=== PATIENT | male | born 1990 | race Caucasian/White ===

== ENCOUNTER 2020-10-14 19:28 | Emergency (ER) | payer SELFPAY ==
[~2020-10-14] VITALS: Ht 167.6 cm; Wt 63.5 kg
[2020-10-14 19:29] VITALS: BP_SYST 136
--- NOTE | 2020-10-14 19:45 | NUR ---
Patient to ER bed Tent 1 to gown for evaluation. Side rails up.
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
--- NOTE | 2020-10-14 20:30 | NUR ---
Dr Nunez evaluating patient at bedside
--- NOTE | 2020-10-14 21:00 | NUR ---
Assumed care of patient at change of shift. Introduced self to patient, positioned for comfort and safety w/ bed to low position sr up, continue to monitor. Patient resting quietly. No acute distress noted. Vital signs within normal range.
[2020-10-14] MEDS ORDERED: BACITRACIN 1 GM OINT TP ONE (21:30)
[2020-10-14 21:40] VITALS: BP_SYST 132
--- NOTE | 2020-10-14 21:40 | NUR ---
Patient noted to have existing wounds upon arrival to ER. description of wound and placed in chart. Wound covered with dressing. Physician notified of wound presence. Patient given written and verbal discharge instructions and verbalizes understanding. ER MD discussed with patient the results and treatment provided. Patient in stable condition. ID arm band removed. Patient educated on pain management and to follow up with PMD. Pain Scale 0. Opportunity for questions provided and answered. Medication side effect fact sheet provided. Patient in custody w/ CAROLA Moreira
== END 2020-10-14 21:40 ==
LOC: SED 19:28
DX: S50.311A Abrasion of right elbow, initial encounter (principal); Y04.0XXA Assault by unarmed brawl or fight, initial encounter; Y93.89 Activity, other specified; Y92.89 Other specified places as the place of occurrence of the external cause; Y99.8 Other external cause status
CPT/HCPCS: 99283

== ENCOUNTER 2022-05-20 01:28 | Emergency (ER) | payer SELFPAY ==
[~2022-05-20] VITALS: Ht 167.6 cm; Wt 65.8 kg
--- NOTE | 2022-05-20 01:41 | NUR ---
Patient to ER bed 04 to gown for evaluation.
[2022-05-20 01:46] VITALS: BP_SYST 131
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
--- NOTE | 2022-05-20 02:13 | NUR ---
ER Dr. BERMUDEZ at bedside examining patient.
[2022-05-20] MEDS ORDERED: HYDROcodone/ACETAMIN 5-325 MG TAB (NORCO/ VICODIN) PO ONE (02:15)
--- NOTE | 2022-05-20 02:15 | NUR ---
PATIENT OFF UNIT TO CT SCAN
--- NOTE | 2022-05-20 02:42 | NUR ---
PATIENT RETURNED FROM CT SCAN
--- NOTE | 2022-05-20 02:46 | NUR ---
MEDICATED PER MD ORDERS
[2022-05-20] MEDS ORDERED: LIDO1ADH71 TD (02:56)
[2022-05-20] MEDS ORDERED: IBUP-1971 PO (02:56)
[2022-05-20] MEDS ORDERED: TRAM50TA2 PO (02:56)
[2022-05-20 03:18] VITALS: BP_SYST 126
--- NOTE | 2022-05-20 03:18 | NUR ---
Patient given written and verbal discharge instructions and verbalizes understanding. ER MD discussed with patient the results and treatment provided. Patient in stable condition. ID arm band removed. Rx of LIDOCAINE PATCH, TRAMADOL AND MOTRIN given. Patient educated on pain management and to follow up with PMD. Pain Scale 0/10 Opportunity for questions provided and answered. Medication side effect fact sheet provided.
== END 2022-05-20 03:18 | disposition home or self-care (01) ==
LOC: SED 01:28
DX: S02.5XXA Fracture of tooth (traumatic), initial encounter for closed fracture (principal); S20.213A Contusion of bilateral front wall of thorax, initial encounter; Z79.899 Other long term (current) drug therapy; Y04.8XXA Assault by other bodily force, initial encounter; Y93.89 Activity, other specified; Y92.89 Other specified places as the place of occurrence of the external cause; Y99.8 Other external cause status
CPT/HCPCS: 70450-TC; 70486-TC; 71045; 71100; 76376; 99284